=== PATIENT | female | born 1985 | race Caucasian/White ===

== ENCOUNTER 2018-08-22 10:13 | Emergency (ER) | payer MEDICAID ==
[~2018-08-22] VITALS: Ht 162.6 cm; Wt 84.0 kg
[~2018-08-22 10:13] MED LIST: FERR-43 PO; PREN-88 PO
[2018-08-22] MEDS ORDERED: SODIUM CHLORIDE 0.9% 1,000 ML IV ONE (12:56)
[2018-08-22] MEDS ORDERED: PROCHLORPERAZINE 10MG/2ML VIAL IV ONE (13:00)
[2018-08-22] MEDS ORDERED: HYDROCODONE/ACETAMINOPHEN 5/325MG TABLET PO ONE (14:15)
[2018-08-22] MEDS ORDERED: IBUPROFEN 600MG TABLET PO ONE (14:15)
[2018-08-22 14:27] VITALS: BP 126/72
== END 2018-08-22 14:30 | disposition home or self-care (01) ==
LOC: ER 10:13
DX: G43.909 Migraine, unspecified, not intractable, without status migrainosus (principal); D64.9 Anemia, unspecified; Z98.890 Other specified postprocedural states
CPT/HCPCS: 81025; 96374; 99283; J0780; J7030; Z7610